=== PATIENT | female | born 1960 | race African-American/Black ===

== ENCOUNTER 2019-06-21 13:47 | Emergency (ER) | payer MEDICARE, BC ==
[~2019-06-21] VITALS: Ht 154.9 cm; Wt 86.2 kg
[2019-06-21] MEDS ORDERED: FOLIC ACID1 MG ORAL (13:55)
[2019-06-21] MEDS ORDERED: CYMBALTA60 MG ORAL (13:55)
[2019-06-21 14:00] VITALS: BP 153/90
--- NOTE | 2019-06-21 14:00 | NUR ---
Pt ambulated into ER with complaint of generalized pain x today. Patient has a hx of lupus. Pt complain of pain a 8/. No signs of respiratory and cardiac distress noted at this time. Patient placed on cardiac monitors.
[2019-06-21] MEDS ORDERED: Solu-MEDROL 125mg Inj IVP ONE (14:15)
[2019-06-21] MEDS ORDERED: Morphine Sulfate 4mg/ml Inj (IV USE ONLY) IVP ONE (14:15)
[2019-06-21 14:48] LABS: APPEARANCE,URINE CLEAR; BILIRUBIN, URINE NEGATIVE (NEGATIVE); COLOR,URINE PALE YELLOW; GLUCOSE, URINE (UA) NEGATIVE (NEGATIVE); KETONES,URINE NEGATIVE (NEGATIVE); LEUKOCYTE ESTERASE ,URINE 1+ (NEGATIVE); NITRITE,URINE NEGATIVE (NEGATIVE); PH,URINE 6.5 (4.5-8.0); PROTEIN,URINE NEGATIVE (NEGATIVE); UROBILINOGEN,URINE NORMAL MG/DL (0.0-1.0)
[2019-06-21 15:13] LABS: BASOPHILS % (AUTO) 1.1 % (0.0-2.0); EOSINOPHILS % (AUTO) 1.6 % (0.0-3.0); HEMOGLOBIN 15.2 G/DL (12.0-16.0); LYMPHOCYTES % (AUTO) 29.6 % (20.0-45.0); MEAN CORPUSCULAR VOLUME 95 FL (80-99); NEUTROPHILS % (AUTO) 56.7 % (45.0-75.0); PLATELET COUNT 388 K/UL (150-450); RED BLOOD COUNT 4.93 M/UL (4.20-5.40); RED CELL DISTRIBUTION WIDTH 13.6 % (11.6-14.8); WHITE BLOOD COUNT 10.9 K/UL (4.8-10.8)
[2019-06-21 15:25] LABS: ANION GAP 6 mmol/L (5-15); BLOOD UREA NITROGEN 15 mg/dL (7-18); CALCIUM 9.7 MG/DL (8.5-10.1); CARBON DIOXIDE 30 MMOL/L (21-32); CHLORIDE 103 MMOL/L (98-107); CREATININE 0.5 MG/DL (0.55-1.30); POTASSIUM 4.4 MMOL/L (3.5-5.1); SODIUM 139 MMOL/L (136-145)
--- NOTE | 2019-06-21 15:25 | Emergency Room Report ---
History of Present Illness General Chief Complaint: General Complaint Source: Patient Present Illness HPI 59-year-old female presents the ED for evaluation. Complaining of generalized body aches and weakness x1 week. Describes some frequent urination. Believes she has a UTI. Denies fevers or chills. Notes pain is dull, 8 out of 10, nonradiating. History of lupus. Thinks that her UTI has triggered her lupus. Denies cough. Denies chest pain or shortness of breath. No other aggravating relieving factors. Denies any other associated symptoms Allergies: Coded Allergies: ACETAMINOPHEN (Verified Allergy, Unknown, 11/10/08) AMOXICILLIN (Verified Allergy, Unknown, RASH, 11/10/08) ASPIRIN (Verified Allergy, Unknown, 11/10/08) BENZOIC ACID (Verified Allergy, Unknown, 11/10/08) BUTALBITAL (Verified Allergy, Unknown, 11/10/08) CAFFEINE (Verified Allergy, Unknown, 11/10/08) ERGOTAMINE (Verified Allergy, Unknown, 11/10/08) GUAIFENESIN (Verified Allergy, Unknown, 11/10/08) PENTOXIFYLLINE (Verified Allergy, Unknown, 11/10/08) POTASSIUM BENZOATE (Verified Allergy, Unknown, 11/10/08) SODIUM BENZOATE (Verified Allergy, Unknown, 11/10/08) SULFONYLUREAS (Verified Allergy, Unknown, HIVES, 11/10/08) THEOPHYLLINE (Verified Allergy, Unknown, HIVES, 11/10/08) THEOPHYLLINE PROCAINE (Verified Allergy, Unknown, 11/10/08) Patient History Past Medical History: other - lupus Past Surgical History: none Pertinent Family History: none Social History: Denies: smoking, alcohol use, drug use Now: No Immunizations: UTD Reviewed Nursing Documentation: PMH: Agreed; PSxH: Agreed Nursing Documentation-PMH Past Medical History: No History, Except For Hx Cardiac Problems: No - lupus Review of Systems All Other Systems: negative except mentioned in HPI Physical Exam Vital Signs Date Time Temp Pulse Resp B/P (MAP) Pulse Ox O2 Delivery O2 Flow Rate FiO2 06/21/19 13:50 98.2 73 19 159/101 (120) 96 Room Air Sp02 EP Interpretation: reviewed, normal General Appearance: no apparent distress, alert, GCS 15, non-toxic, obese Head: normocephalic, atraumatic Eyes: bilateral eye normal inspection, bilateral eye PERRL ENT: hearing grossly normal, normal pharynx, no angioedema, normal voice Neck: full range of motion, supple/symm/no masses Respiratory: chest non-tender, lungs clear, normal breath sounds, speaking full sentences Cardiovascular #1: regular rate, rhythm, no edema Cardiovascular #2: 2+ carotid (R), 2+ carotid (L), 2+ radial (R), 2+ radial (L) , 2+ dorsalis pedis (R), 2+ dorsalis pedis (L) Gastrointestinal: normal bowel sounds, non tender, soft, non-distended, no guarding, no rebound Rectal: deferred Genitourinary: normal inspection, no CVA tenderness Musculoskeletal: back normal, normal range of motion, gait/station normal, non- tender Neurologic: alert, motor strength/tone normal, oriented x3, sensory intact, responsive, speech normal Psychiatric: judgement/insight normal, memory normal, mood/affect normal, no suicidal/homicidal ideation Reflexes: 3+ bicep (R), 3+ bicep (L), 3+ tricep (R), 3+ tricep (L), 3+ knee (R) , 3+ knee (L) Lymphatic: no adenopathy Medical Decision Making Diagnostic Impression: Primary Impression: UTI (urinary tract infection) Qualified Codes: N39.0 - Urinary tract infection, site not specified Additional Impressions: Lupus Opiate dependence Qualified Codes: F11.29 - Opioid dependence with unspecified opioid-induced disorder ER Course Hospital Course 59 yo F presents with generalized weakness, frequent urination. body aches. h/o lupus Differential diagnoses include: UTI, cystitis, dehydration, lupus flare Clinical course Patient placed on stretcher. After initial history and physical I ordered UA, labs, IV fluids, pain Meds, solumedrol labs - minimal leukocytosis, hb/hematocrit stable, electrolytes okay, UA + bacteria I discussed findings with patient. On reassessment patient feels better. Likely lupus flare. Will discharge with antibiotics. Prednisone. on review of [facility] is receiving extensive narcotic prescriptions on a monthly basis. Diagnosis - lupus, UTI, opiate dependence Stable and discharged home with prescriptions for Rx macrobid, prednisone. Followup with PMD. Return to ED if symptoms recur or worsen Labs Test 06/21/19 14:40 06/21/19 15:00 Urine Color Pale yellow Urine Appearance Clear Urine pH 6.5 (4.5-8.0) Urine Specific [place] 1.015 (1.005-1.035) Urine Protein Negative (NEGATIVE) Urine Glucose (UA) Negative (NEGATIVE) Urine Ketones Negative (NEGATIVE) Urine Blood Negative (NEGATIVE) Urine Nitrite Negative (NEGATIVE) Urine Bilirubin Negative (NEGATIVE) Urine Urobilinogen Normal MG/DL (0.0-1.0) Urine Leukocyte Esterase 1+ (NEGATIVE) Urine RBC 0 /HPF (0 - 2) Urine WBC 0-2 /HPF (0 - 2) Urine Squamous Epithelial Cells Few /LPF (NONE/OCC) Urine Bacteria Occasional /HPF (NONE) White Blood Count 10.9 K/UL (4.8-10.8) Red Blood Count 4.93 M/UL (4.20-5.40) Hemoglobin 15.2 G/DL (12.0-16.0) Hematocrit 47.0 % (37.0-47.0) Mean Corpuscular Volume 95 FL (80-99) Mean Corpuscular Hemoglobin 30.8 PG (27.0-31.0) Mean Corpuscular Hemoglobin Concent 32.2 G/DL (32.0-36.0) Red Cell Distribution Width 13.6 % (11.6-14.8) Platelet Count 388 K/UL (150-450) Mean Platelet Volume 5.3 FL (6.5-10.1) Neutrophils (%) (Auto) 56.7 % (45.0-75.0) Lymphocytes (%) (Auto) 29.6 % (20.0-45.0) Monocytes (%) (Auto) 11.0 % (1.0-10.0) Eosinophils (%) (Auto) 1.6 % (0.0-3.0) Basophils (%) (Auto) 1.1 % (0.0-2.0) Sodium Level 139 MMOL/L (136-145) Potassium Level 4.4 MMOL/L (3.5-5.1) Chloride Level 103 MMOL/L (98-107) Carbon Dioxide Level 30 MMOL/L (21-32) Anion Gap 6 mmol/L (5-15) Blood Urea Nitrogen 15 mg/dL (7-18) Creatinine 0.5 MG/DL (0.55-1.30) Estimat Glomerular Filtration Rate > 60 mL/min (>60) Glucose Level 91 MG/DL (74-106) Calcium Level 9.7 MG/DL (8.5-10.1) Total Bilirubin 0.7 MG/DL (0.2-1.0) Aspartate Amino Transf (AST/SGOT) 14 U/L (15-37) Alanine Aminotransferase (ALT/SGPT) 24 U/L (12-78) Alkaline Phosphatase 92 U/L (46-116) Total Protein 7.8 G/DL (6.4-8.2) Albumin 3.7 G/DL (3.4-5.0) Globulin 4.1 g/dL Albumin/Globulin Ratio 0.9 (1.0-2.7) Last Vital Signs Date Time Temp Pulse Resp B/P (MAP) Pulse Ox O2 Delivery O2 Flow Rate FiO2 06/21/19 13:50 98.2 73 19 159/101 (120) 96 Room Air Status: improved Disposition: HOME, SELF-CARE Condition: Stable Scripts Nitrofurantoin Monohyd/M-Cryst* (MACROBID 100 MG*) 100 Mg Capsule 100 MG ORAL EVERY 12 HOURS for 7 Days, CAP Prov: Kali Lofton MD 06/21/19 Prednisone* (PREDNISONE*) 20 Mg Tablet 40 MG ORAL DAILY, #10 TAB Prov: Kali Lofton MD 06/21/19 Kali Lofton MD Jun 21, 2019 15:25
[2019-06-21 15:30] LABS: ALANINE AMINOTRANSFERASE 24 U/L (12-78); ALBUMIN 3.7 G/DL (3.4-5.0); ALBUMIN/GLOBULIN RATIO 0.9 (1.0-2.7); ALKALINE PHOSPHATASE 92 U/L (46-116); ASPARTATE AMINO TRANSFERASE 14 U/L (15-37); BILIRUBIN,TOTAL 0.7 MG/DL (0.2-1.0)
[2019-06-21] MEDS ORDERED: PREDNISONE20 MG ORAL ×2 (15:54→16:28)
[2019-06-21] MEDS ORDERED: NITROFURANTOIN100 M2 ORAL ×2 (15:54→16:28)
[2019-06-21 16:10] VITALS: BP 153/90
--- NOTE | 2019-06-21 16:10 | NUR ---
ER DISCHARGE NOTE: Patient is cleared to be discharged per ERMD Dr. Amos, pt is aox4, on room air, with stable vital signs. pt was given dc and prescription instructions, pt was able to verbalize understanding, pt id band and iv site removed without complications. pt is able to ambulate with cane. pt took all belongings.
== END 2019-06-21 16:10 | disposition home or self-care (01) ==
LOC: EMR 16:10
DX: N39.0 Urinary tract infection, site not specified (principal); M32.9 Systemic lupus erythematosus, unspecified; F11.29 Opioid dependence with unspecified opioid-induced disorder; D72.829 Elevated white blood cell count, unspecified; Z88.6 Allergy status to analgesic agent; Z88.2 Allergy status to sulfonamides; Z88.8 Allergy status to other drugs, medicaments and biological substances; E66.9 Obesity, unspecified; Z68.35 Body mass index [BMI] 35.0-35.9, adult
CPT/HCPCS: 36415; 80053; 81003; 85025; 96361; 96374; 96375; 99284; J2270; J2930; J7030